=== PATIENT | male | born 1995 | race Caucasian/White ===

== ENCOUNTER 2020-04-09 15:26 | Emergency (ER) | payer MEDICAID, SELFPAY ==
[2020-04-09 19:40] VITALS: BP 151/90; PULSE 89; RESP 18; O2SAT 100; BMI 28.1
== END 2020-04-09 20:11 | disposition left against medical advice (07) ==
PROVIDERS: Emergency Provider Internal Medicine
DX: R10.9 Unspecified abdominal pain (principal)
CPT/HCPCS: 99281; 99282